=== PATIENT | female | born 1955 | race Caucasian/White ===

== ENCOUNTER 2025-08-20 11:22 | Emergency (ER) | payer OTHER, SELFPAY ==
[2025-08-20 11:26] VITALS: BP 151/88
--- NOTE | 2025-08-20 12:28 | ED.GENMED ---
History of Present Illness
General
Chief Complaint: Musculo-Skeletal Complaint
Source: patient
Exam Limitations: none
Time Seen by Provider: 08/20/25 11:35
History of Present Illness
History of Present Illness:
See MDM
Past History
Past History
ED Past Medical History: None
ED Past Surgical History: None
Social History
Tobacco: Non-smoker
Alcohol: None
Phy Exam
Physical Exam
Physical Exam:
See MDM
Course
Orders/Labs/Results
Orders:
Orders
08/20/25 11:24
Wrist, Right 3 Views [CR Wrist - Right Min 3 Views] Urgent
Comment:
Reason For Exam: pain injury
Vital Signs
Initial and Last Documented VS:
Initial Vital Signs
Temp Pulse Resp BP Pulse Ox
98.7 F 77 16 151/88 98
08/20/25 11:26 08/20/25 11:26 08/20/25 11:26 08/20/25 11:26 08/20/25 11:26
Last Documented Vital Signs
Temp Pulse Resp BP Pulse Ox
98.7 F 77 16 151/88 98
08/20/25 11:26 08/20/25 11:26 08/20/25 11:26 08/20/25 11:26 08/20/25 11:26
MDM/Problems Addressed
Differential Diagnosis Includes:
Note:
CHIEF COMPLAINT(S)
Right wrist pain after a suspected fracture.
HISTORY OF PRESENT ILLNESS
The patient is a 70-year-old female who presented with right wrist pain. The patient reports that the pain is localized in the right wrist area and she has difficulty twisting and moving it. She described her discomfort by saying she cannot move it
or twist it properly, implying restricted movement. This visit taylor her first occurrence as a patient in the emergency department and she has never broken a bone before. An examination of the wrist showed signs of a subtle fracture line on imaging.
No surgery is deemed necessary based on the initial evaluation, but a splint will be applied. The patient is left-handed, which she mentioned in relation to managing her injury and daily tasks.
PAST MEDICAL AND SURGICAL HISTORY
The patient has no history of fractures and has not previously been a patient in the emergency department.
SOCIAL DETERMINANTS AFFECTING HEALTH
The patient drove herself to the emergency department, indicating she has transportation access. She mentioned her spouse had a lung biopsy which was positive, suggesting recent ongoing stress related to family health issues.
ALLERGIES
None reported.
MEDICATIONS
The patient stated she does not take any medications currently.
REVIEW OF SYSTEMS
- Musculoskeletal: Right wrist pain with limited ability to twist and move the wrist.
PHYSICAL EXAM
General: Alert, no acute distress.
Skin: Warm, dry.
Head: Normocephalic, atraumatic.
Neck: Supple, trachea midline.
Eye, Ears, Nose, Mouth, and Throat: Oral mucosa moist.
Cardiovascular: Normal peripheral perfusion, no edema.
Respiratory: Respirations are non-labored.
Gastrointestinal: Abdomen nondistended.
Back: Normal range of motion, normal alignment.
Musculoskeletal: Limited range of motion in the right wrist due to pain; tenderness overlying distal right radius. Distal extremity otherwise neurovascular intact.
Neurological: Alert and oriented to person, place, time, and situation, no focal neurological deficit observed.
Psychiatric: Cooperative, appropriate mood and affect.
PROBLEM LIST
Acute Problems:
- Right wrist pain and fracture.
PLAN
1. Apply a splint to the right wrist.
2. Provide the patient with a referral to see an orthopedist for follow-up care.
3. Prescribe pain medication to be filled at the patients local pharmacy.
4. Provide a disc with imaging for the patients follow-up consultation.
DIFFERENTIAL DIAGNOSIS
The Differential Diagnosis includes, in no particular order and is not limited to:
1. Wrist fracture
2. Wrist sprain
3. Carpal tunnel syndrome
4. Tendinitis
5. Arthritis
6. De Quervains tenosynovitis
7. Ligament injury
8. Bone contusion
9. Ganglion cyst
10. Radial nerve entrapment
SUMMARY OF ENCOUNTER
The patient, a 70-year-old left-hand dominant female, presented to the emergency department after experiencing a trip and fall. She reported right wrist pain and limited ability to move her wrist. An x-ray indicated a concern for a distal radius
fracture in her right wrist. I decided to apply a splint and provide pain medication. The injured hand showed no neurovascular compromise, and the patient appeared well, not in acute distress, and felt comfortable with the treatment plan. She will
follow up with her orthopedist close to her residence and receive a CD of her x-ray for continuity of care.
DISPOSITION
Discharge.
ASSESSMENT
Suspected distal radius fracture of the right wrist following a fall.
PLAN
1. Splint the right wrist.
2. Prescribe pain medication to manage symptoms.
3. Provide the patient with a CD copy of the x-ray for her orthopedist.
4. Advise follow-up with an habilitation training specialist near her home.
PATIENT EDUCATION AND COUNSELING
Discussed the nature of her injury, the application of the splint, and the importance of follow-up care with an orthopedist to ensure proper healing of the wrist.
FOLLOW-UP INSTRUCTIONS
Please follow up with your orthopedist as soon as possible.
MEDICATION RECONCILIATION
Prescribe pain medication for discomfort management, specific medication name and dosage not explicitly mentioned.
MEDICAL DECISION MAKING
-Complexity of Data Reviewed: Acute right wrist fracture. Differential diagnosis considered included wrist fracture, wrist sprain, carpal tunnel syndrome, tendinitis, arthritis, De Quervains tenosynovitis, ligament injury, bone contusion, ganglion
cyst, and radial nerve entrapment.
-Data:
Category 1: My independent interpretation of the wrist x-ray indicates a suspected distal radius fracture.
Category 3: No external consultations required based on current assessment, as patient will follow up with her orthopedist.
-Risk: Prescription medication was prescribed for pain management of her wrist injury. Consideration of Admission/Observation: Escalation of care including admission/observation was considered given the complexity and risk of the patients presenting
complaint, exam findings, and their underlying comorbidities. However, ultimately, I feel the patient is safe for outpatient management with close follow-up. Reasoning: Work-up reassuring does not reveal any acute life/organ-threatening processes;
the patients symptoms are well-controlled upon re-evaluation; reexamination is reassuring; vitals are stable; patient agreeable with discharge; reliable for follow-up.
DIAGNOSIS
Suspected distal radius fracture, right wrist (ICD-10: S52.501A).
*Pulse Oximetry
SaO2: 98
Oxygen Mode of Delivery: Room air
Patient hypoxic: no
*Critical Care Note
Total Time (30-74mins, 75-104mins- exclusive of procedures): Not Applicable
ED Attending Note
-
Portions of this chart may have been created with voice recognition software.� Occasional wrong word or��sound alike� substitutions may have occurred due to the inherent limitations of voice recognition software.
Discharge Plan
Departure
Patient Disposition: Home (Routine Discharge)
Date of Disposition: 08/20/25
Time of Disposition: 12:28
Patient with high blood pressure during this ER visit?: Yes
Discharge Problem:
Distal radius fracture, right
Instructions: Wrist Fracture (DC), BLOOD PRESSURE
Prescriptions:
New
oxycodone 5 mg tablet
5 mg PO Q8H PRN (Reason: Pain) Qty: 14 0RF
Referrals:
UNKNOWN - PT DOES,NOT KNOW [Family Provider]
Activity Restrictions/Additional Instructions:
Please return for any worsening symptoms.
You may return at any time if you have further concerns.
Please follow up with your orthopedist at the first available appointment, preferably this week.
You were given a prescription for narcotics. If you require this pain medicine, please take a daily [id number] stool softener to avoid constipation.
Thank you for choosing [facility].
Interventions
Interventions:
*Risk Screen - Suicide Last Done: 08/20/25 11:26
*General Assessment Last Done: 08/20/25 11:26
*Neglect/Abuse Screening Last Done: 08/20/25 11:26
*ED- Fall Risk Assessment Last Done: 08/20/25 11:26
*ED COVID-19 Vaccine History Last Done: 08/20/25 11:26
*ED Influenza Vaccine History Last Done: 08/20/25 11:26
ED-Musculoskeletal Assessment Last Done: 08/20/25 11:50
Discharge Date and Time
Print Language: WOLOF
== END 2025-08-20 12:37 | disposition home or self-care (01) ==
LOC: EMR 11:22
PROVIDERS: EMERGENCY PHYSICIAN Student in an Organized Health Care Education/Training Program
DX: S52.501A Unspecified fracture of the lower end of right radius, initial encounter for closed fracture (principal); W01.0XXA Fall on same level from slipping, tripping and stumbling without subsequent striking against object, initial encounter
CPT/HCPCS: 99283; 73110